=== PATIENT | female | born 1965 | race American Indian/Alaskan Native ===

== ENCOUNTER 2017-08-25 08:10 | Emergency (ER) | payer SELFPAY ==
[2017-08-25 09:25] LABS: Basophils % (Auto) 0.3 % (0.0-1.8); Hemoglobin 13.3 gm/dl (10.1-14.3); Mean Corpuscular HGB Conc 32 % (30-34); Mean Corpuscular Hemoglobin 27 pg (28-32); Mean Corpuscular Volume 85 fl (79-97); Platelet Count 476 K/mm3 (140-440); Red Blood Count 4.96 M/mm3 (3.65-5.03); Red Cell Distribution Width 15.5 % (13.2-15.2); White Blood Count 5.4 K/mm3 (4.5-11.0)
[2017-08-25 09:56] LABS: Alanine Aminotransferase 17 units/L (7-56); Albumin 3.9 g/dL (3.9-5); Albumin/Globulin Ratio 0.7 %; Alkaline Phosphatase 111 units/L (35-129); Anion Gap 23 mmol/L; BUN/Creatinine Ratio 15; Blood Urea Nitrogen 9 mg/dL (7-17); Calcium 10.3 mg/dL (8.4-10.2); Carbon Dioxide 26 mmol/L (22-30); Chloride 94.5 mmol/L (98-107); Glucose 128 mg/dL (65-100); Lipase 13 units/L (13-60); Potassium 3.4 mmol/L (3.6-5.0); Sodium 140 mmol/L (137-145); Total Protein 9.7 g/dL (6.3-8.2)
[2017-08-26] MEDS ORDERED: NACL 0.9% 1000 ML 1,000 ML IV ONE (00:08)
[2017-08-26] MEDS ORDERED: SUBLIMAZE IV ONE ×2 (00:09→01:00)
[2017-08-26] MEDS ORDERED: ZOFRAN IV ONE (00:09)
[2017-08-26] MEDS ORDERED: CATAPRES PO ONE (00:47)
[2017-08-26] MEDS ORDERED: APRESOLINE PO ONE (00:48)
--- NOTE | 2017-08-26 01:06 | Emergency Department Report ---
ED N/V/D HPI - General Chief complaint: Nausea/Vomiting/Diarrhea Stated complaint: VOMITING Time Seen by Provider: 08/26/17 00:00 Source: patient Mode of arrival: Ambulatory Limitations: No Limitations - History of Present Illness Initial comments: 52-year-old female with past medical history of hypertension has presented to the ED complaining of nausea/vomiting. Patient states symptoms started 1 day prior to ED arrival. Patient denies inciting factors such as change in diet. Patient states her symptoms are worse with eating solids, she has no worsening factors. Patient states her vomiting has increased so much that she is unable to tolerate by mouth liquids. Patient states this happened once in the past she was admitted and given "pain control and IV fluids. Patient admits she has mild abdominal pain while having emesis however when she is not vomiting her abdominal pain subsides. Patient denies: Fever/chills, chest pain, diarrhea, hematemesis, bloody stools. MD complaint: nausea, vomiting -: Gradual, days(s) (1) Description of Vomiting: food contents Associated Abdominal Pain: No Location: diffuse Radiation: none Severity: moderate Pain Scale: 6 Quality: cramping Consistency: intermittent Improves with: none Worsens with: none Associated Symptoms: nausea/vomiting. denies: myalgias, chest pain, cough, diaphoresis, headaches, loss of appetite, malaise, shortness of breath, syncope , weakness - Related Data Previous Rx's Medication Instructions Recorded Last Taken Type Dicyclomine [Bentyl] 20 mg PO QID #20 bottle 08/26/17 Unknown Rx Famotidine [Pepcid] 20 mg PO BID #20 tablet 08/26/17 Unknown Rx Lisinopril [Zestril TAB] 20 mg PO QDAY #20 tablet 08/26/17 Unknown Rx Ondansetron [Zofran Odt] 4 mg PO Q8HR PRN #20 tab.rapdis 08/26/17 Unknown Rx amLODIPine [Norvasc] 10 mg PO DAILY #20 tab 08/26/17 Unknown Rx Allergies Allergy/AdvReac Type Severity Reaction Status Date / Time No Known Allergies Allergy Unverified 08/25/17 08:40 ED Review of Systems ROS: Stated complaint: VOMITING,LOSS WEIGHT Other details as noted in HPI Constitutional: denies: chills, fever Eyes: denies: eye pain, eye discharge, vision change ENT: denies: ear pain, throat pain Respiratory: denies: cough, shortness of breath, wheezing Cardiovascular: denies: chest pain, palpitations Endocrine: no symptoms reported Gastrointestinal: abdominal pain, nausea. denies: diarrhea, constipation, hematemesis, hematochezia, other Genitourinary: denies: urgency, dysuria, discharge Musculoskeletal: denies: back pain, joint swelling, arthralgia Skin: denies: rash, lesions Neurological: denies: headache, weakness, paresthesias Psychiatric: denies: anxiety, depression Hematological/Lymphatic: denies: easy bleeding, easy bruising ED Past Medical Hx - Past Medical History Hx Hypertension: Yes - Surgical History Past Surgical History?: No - Social History Smoking Status: Never Smoker Substance Use Type: None - Medications Home Medications: Home Medications Medication Instructions Recorded Confirmed Last Taken Type Dicyclomine [Bentyl] 20 mg PO QID #20 bottle 08/26/17 Unknown Rx Famotidine [Pepcid] 20 mg PO BID #20 tablet 08/26/17 Unknown Rx Lisinopril [Zestril TAB] 20 mg PO QDAY #20 tablet 08/26/17 Unknown Rx Ondansetron [Zofran Odt] 4 mg PO Q8HR PRN #20 tab.rapdis 08/26/17 Unknown Rx amLODIPine [Norvasc] 10 mg PO DAILY #20 tab 08/26/17 Unknown Rx ED Physical Exam - General Limitations: No Limitations General appearance: alert, in no apparent distress - Head Head exam: Present: atraumatic, normocephalic - Eye Eye exam: Present: normal appearance - ENT ENT exam: Present: mucous membranes moist - Neck Neck exam: Present: normal inspection - Respiratory Respiratory exam: Present: normal lung sounds bilaterally. Absent: respiratory distress - Cardiovascular Cardiovascular Exam: Present: regular rate, normal rhythm. Absent: systolic murmur, diastolic murmur, rubs, gallop - GI/Abdominal GI/Abdominal exam: Present: soft, tenderness (mild diffuse tenderness ), normal bowel sounds. Absent: distended, guarding - Extremities Exam Extremities exam: Present: normal inspection - Back Exam Back exam: Present: normal inspection, full ROM. Absent: tenderness - Neurological Exam Neurological exam: Present: alert, oriented X3 - Psychiatric Psychiatric exam: Present: normal affect, normal mood - Skin Skin exam: Present: warm, dry, intact, normal color. Absent: rash ED Course Vital Signs 08/25/17 08/26/17 08/26/17 08:35 01:00 01:07 Temperature 98.6 F 98 F Pulse Rate 85 81 84 Respiratory 18 16 Rate Blood Pressure 183/107 217/122 Blood Pressure 217/122 [Left] O2 Sat by Pulse 100 98 Oximetry 08/26/17 01:08 Temperature Pulse Rate 81 Respiratory Rate Blood Pressure 217/122 Blood Pressure [Left] O2 Sat by Pulse Oximetry ED Medical Decision Making - Lab Data Result diagrams: 08/25/17 08:49 08/25/17 08:49 - EKG Data EKG shows normal: sinus rhythm (86), axis (UPRIGHT ), intervals (QTC 510) - EKG Data Interpretation: other (patient has prolonged QTC) - Radiology Data Radiology results: report reviewed, image reviewed No acute findings seen on CT. Dr colon - Medical Decision Making 52-year-old female presenting to the ED complaining of nausea vomiting. 1) nausea /vomiting Liquids secondary to gastritis. CT abdomen and pelvis was negative for acute findings. I have reevaluated patient and she is comfortable, tolerating by mouth liquids. Repeat abdominal exam was soft nontender, nondistended. I have Low suspicion for: Cholecystitis, small bowel obstruction, appendicitis, colitis. 2) prolonged QTC Patient denies history of this, patient will be given 2 g magnesium IV with reassessment and repeat EKG. I'll have patient to follow up with cardiology. She has no thoracic complaints at this time, she has no chest pain. 3) hypertensive urgency Patient's systolic blood pressure is 213, she has no headache, no dizziness no neurological complaints. She's been given hydralazine, clonidine both by mouth with improvement of blood pressure. I will add amlodipine to patient's outpatient management. Patent is signged out to Dr Dennis pending repeat EKG for a decrease in QTC interval and repeat blood pressure. Critical care attestation.: If time is entered above; I have spent that time in minutes in the direct care of this critically ill patient, excluding procedure time. ED Disposition Clinical Impression: Nausea & vomiting, Prolonged Q-T interval on ECG, Hypertensive urgency, Abdominal pain Disposition: - TO HOME OR SELFCARE Is pt being admited?: No Does the pt Need Aspirin: No Condition: Stable Instructions: Chronic Hypertension (ED), Abdominal Pain (ED), Acute Nausea and Vomiting (ED), Hypertension (ED) Prescriptions: amLODIPine [Norvasc] 10 mg PO DAILY #20 tab Dicyclomine [Bentyl] 20 mg PO QID #20 bottle Famotidine [Pepcid] 20 mg PO BID #20 tablet Lisinopril [Zestril TAB] 20 mg PO QDAY #20 tablet Ondansetron [Zofran Odt] 4 mg PO Q8HR PRN #20 tab.rapdis PRN Reason: Nausea Referrals: PRIMARY CARE, [Primary Care Provider] - 3-5 Days JANNY WYNN MD [Staff Physician] - SONI ONEL MARINO MD [Staff Physician] - SONI Forms: Work/School Release Form(ED)
[2017-08-26 01:24] LABS: Bacteria,Urine 1+ /HPF (Negative); Bilirubin,Urine NEG (Negative); Blood,Urine NEG (Negative); Ketones,Urine 80 mg/dL (Negative); Leukocyte Esterase,Urine NEG (Negative); Mucus,Urine 3+ /HPF; Nitrite,Urine NEG (Negative)
--- NOTE | 2017-08-26 01:57 | Cat Scan Report ---
FINAL REPORT EXAM: CT ABDOMEN PELVIS W CON HISTORY: diffuse pain, n/v TECHNIQUE: Routine axial imaging was obtained of the abdomen pelvis following the intravenous injection of iodinated contrast. Sagittal and coronal reconstructions were reviewed. FINDINGS: The lung bases are clear. Pleural fluid is not seen. The gallbladder is contracted. The liver, pancreas, spleen and adrenal glands appear normal. The kidneys enhance normally. There is no evidence of hydronephrosis. The vascular structures enhance normally. The bowel loops are normal in caliber. The appendix is not seen. There is no evidence of free fluid or adenopathy. In the pelvis the uterus is not identified. The bladder appears normal. The skeletal structures are well-maintained. IMPRESSION: No acute process in the abdomen pelvis. Hysterectomy.
[2017-08-26] MEDS ORDERED: MAGNESIUM SULFATE 2GM/50ML 2 GM/50 ML BAG IV ONE (02:00)
[2017-08-26] MEDS ORDERED: SUBLIMAZE IV PRN (02:11)
[2017-08-26] MEDS ORDERED: NORVASC PO ONE (02:12)
[2017-08-26] MEDS ORDERED: ZOFRAN IV PRN (02:12)
[2017-08-26] MEDS ORDERED: NORMODYNE IV ONE (04:27)
--- NOTE | 2017-08-26 05:23 | Event Note ---
Date: 08/26/17 Patient was signed out by patient's blood pressure has improved after IV labetalol and patient's QTc is improved on repeat EKG to less than 500. Patient will be discharged with outpatient medications. Additional verbal discharge instructions were given. Patient agrees with plan.
[2017-08-26 05:56] VITALS: BP 165/98
== END 2017-08-26 06:00 | disposition home or self-care (01) ==
LOC: ED 08:10
DX: I45.81 Long QT syndrome (principal); I10 Essential (primary) hypertension; R11.2 Nausea with vomiting, unspecified; R10.9 Unspecified abdominal pain
CPT/HCPCS: 36415; 74177; 80053; 81001; 83690; 84484; 85025; 93005; 93010; 96361; 96365; 96375; 96376; 99284; J2405; J3010; J3475; J7030; Q9967